=== PATIENT | female | born 1995 | race Hispanic/Latino ===

== ENCOUNTER 2023-01-18 10:38 | Outpatient (CLI) | payer MEDICAID, OTHER | END 2023-01-18 10:39 | disposition home or self-care (01) | LOC: CSHULT 10:38 | PROVIDERS: ATTEND Advanced Practice Midwife | DX: R10.32 Left lower quadrant pain (principal); N83.8 Other noninflammatory disorders of ovary, fallopian tube and broad ligament | CPT/HCPCS: 76856 ==